=== PATIENT | female | born 1995 | race Caucasian/White ===

== ENCOUNTER 2020-07-05 10:00 | Emergency (ER) | payer OTHER ==
[2020-07-05 10:08] VITALS: BP 107/55; PULSE 76; TEMP 98.2; BMI 22.6
[2020-07-05] MEDS ORDERED: ACETAMINOPHEN 500 MG TABLET (FP) PO ONE (10:56)
[2020-07-05 11:13] LABS: BASO % 0.4 % (0-2.0); EOS % 0.7 % (0-4.5); HEMATOCRIT 37.8 % (32.4-45.2); HEMOGLOBIN 12.1 GM/dL (10.7-15.3); LYMPH % 34.7 % (8-40); MCH 27.8 pg (25.7-33.7); MCHC 32.1 g/dl (32.0-36.0); MEAN CELL VOLUME 86.5 fl (80-96); MEAN PLT VOLUME 8.2 fl (7.5-11.1); MONO % 7.2 % (3.8-10.2); PLATELET COUNT 241 K/MM3 (134-434); RBC 4.37 M/mm3 (3.60-5.2); RDW 13.6 % (11.6-15.6)
[2020-07-05] MEDS ORDERED: ACETAMINOPHEN 325 MG TABLET (FP) ONE (11:32)
[2020-07-05 11:47] LABS: BILIRUBIN,TOTAL 0.3 mg/dL (0.2-1); BLOOD UREA NITROGEN 11.1 mg/dL (7-18); CALCIUM 8.8 mg/dL (8.5-10.1); CREATININE 0.8 mg/dL (0.55-1.3); POTASSIUM 3.5 mmol/L (3.5-5.1); TOT PROT 7.4 g/dl (6.4-8.2)
--- NOTE | 2020-07-05 11:58 | PDOC ---
History of Present Illness - General Chief Complaint: Vaginal Bleeding Stated Complaint: VAGINAL BLEEDING Time Seen by Provider: 07/05/20 10:46 History Source: Patient Exam Limitations: No Limitations - History of Present Illness Initial Comments: 07/05/20 11:55 24-year-old female denies past medical history, status post gastric sleeve 7 years ago, LMP 05/19/20, reports positive home test 06/28/20. Presents to ED complaining of vaginal spotting since yesterday and heavier vaginal bleeding since this morning with lower pelvic cramping. Denies passing clots, she is not soaking pads, denies dizziness, shortness of breath, chest pain, nausea, vomiting, diarrhea, back pain or urinary symptoms. Patient has not taken any medication for pain today. She started taking vitamins yesterday. Has OB appointment scheduled for July 17, 2020. ROS: as above PE: GENERAL: well-appearing, NAD HEAD: NCAT EYES: Pupils equal, round and reactive to light, sclera anicteric, conjunctiva clear ENT: pharynx: no erythema, no exudate, uvula midline NECK: supple CHEST: nontender RESP: clear, no w/r/r CARDIO: rrr, no m/g/r ABD: +BS, soft, nontender, non distended Pelvic: Os closed, no CMT, no adnexal tenderness to palpation, minimal blood in the vault BACK: no midline spinal ttp, no CVAT EXTREMITIES: Normal range of motion, no edema NEUROLOGICAL: Normal speech, normal gait SKIN: Warm, Dry Is this a multiple visit Asthma Patient?: No Past History - Medical History Allergies/Adverse Reactions: Allergies Allergy/AdvReac Type Severity Reaction Status Date / Time Penicillins Allergy Unknown Verified 07/05/20 10:05 Home Medications: Ambulatory Orders Ibuprofen [Motrin -] 400 mg PO Q6H #30 tablet 10/03/16 Anemia: No Asthma: No Cancer: No Cardiac Disorders: No CVA: No COPD: No CHF: No Dementia: No Diabetes: No GI Disorders: No Disorders: No HTN: No Hypercholesterolemia: No Liver Disease: No Seizures: No Thyroid Disease: No - Surgical History GI Surgery: Yes (gastric sleeve) - Reproductive History Is Patient Now?: Yes (#): 1 Para: 0 Polycystic Ovaries: Yes - Immunization History Immunization Up to Date: Yes - Psycho-Social/Smoking History Smoking History: Never smoked Have you smoked in the past 12 months: No Information on smoking cessation initiated: No - Substance Abuse Hx (Audit-C & DAST Scrn) How often the patient has a drink containing alcohol: Never Score: In Men: 4 or > Positive; In Women: 3 or > Positive: 0 Screen Result (Pos requires Nsg. Audit-10AR): Negative In the last yr the pt used illegal drug/Rx for NonMed reason: No Score: Yes response is considered Positive: 0 Screen Result (Positive result requires Nsg. DAST-10): Negative *Physical Exam - Vital Signs Last Vital Signs Temp Pulse Resp BP Pulse Ox 98.2 F 76 15 107/55 L 99 07/05/20 10:05 07/05/20 10:05 07/05/20 10:05 07/05/20 10:05 07/05/20 10:05 ED Treatment Course - LABORATORY CBC & Chemistry Diagram: 07/05/20 10:55 07/05/20 10:55 - ADDITIONAL ORDERS Additional order review: Laboratory Results 07/05/20 10:55 Sodium 139 Potassium 3.5 Chloride 106 Carbon Dioxide 25 Anion Gap 8 BUN 11.1 Creatinine 0.8 Est GFR (CKD-EPI)AfAm 118.76 Est GFR (CKD-EPI)NonAf 102.47 Random Glucose 88 Calcium 8.8 Total Bilirubin 0.3 AST 9 L ALT 13 Alkaline Phosphatase 44 L Total Protein 7.4 Albumin 4.0 07/05/20 10:55 RBC 4.37 MCV 86.5 MCHC 32.1 RDW 13.6 MPV 8.2 Neutrophils % 57.0 Lymphocytes % 34.7 D Monocytes % 7.2 Eosinophils % 0.7 Basophils % 0.4 - RADIOLOGY Radiology Studies Ordered: Category Date Time Status TRANSVAGINAL US PREG [US] Stat Ultrasound 07/05/20 10:52 Ordered Medical Decision Making - Medical Decision Making 07/05/20 11:58 24-year-old female denies past medical history, status post gastric sleeve 7 years ago, LMP 05/19/20, reports positive home test 06/28/20. Presents to ED complaining of vaginal spotting since yesterday and heavier vaginal bleeding since this morning with lower pelvic cramping. Denies passing clots, she is not soaking pads, denies dizziness, shortness of breath, chest pain, nausea, vomiting, diarrhea, back pain or urinary symptoms. Patient has not taken any medication for pain today. She started taking vitamins yesterday. Has OB appointment scheduled for July 17, 2020. Labs including type and screen and UA BHCG Transvaginal ultrasound Acetaminophen p.o. Reassess 07/05/20 14:10 bhcg 958.8, RH + Transvaginal ultrasound shows no intrauterine , right adnexal mass susp icious for ectopic Discussed these results with patient She has been advised to return to the emergency department in 2 days for a repeat bhcg and transvaginal ultrasound Return to ED sooner if you develop heavy vaginal bleeding, passing clots or any worsening symptom 07/05/20 14:12 Discharge - Discharge Information Problems reviewed: Yes Clinical Impression/Diagnosis: Vaginal bleeding Condition: Stable Disposition: HOME - Admission No - Follow up/Referral Referrals: Leroy Nguyen MD [Primary Care Provider] - - Patient Discharge Instructions Additional Instructions: Return to ED in 2 days for repeat blood If you develop heavy vaginal bleeding, worsening abdominal pain, dizziness, shortness of breath or any concerning symptoms return to the ED sooner - Post Discharge Activity
[2020-07-05 12:22] LABS: EPI CELLS 4 /uL (0-25.1); HYALINE CASTS 0 /uL (0-3.1); URINE APPEARANCE CLEAR; URINE BACTERIA 28 /uL (0-1359); URINE BILIRUBIN NEGATIVE (NEGATIVE); URINE COLOR YELLOW; URINE GLUCOSE (UA) NEGATIVE (NEGATIVE); URINE KETONE TRACE (NEGATIVE); URINE LEUK ESTERASE NEGATIVE (NEGATIVE); URINE NITRITE NEGATIVE (NEGATIVE); URINE PROTEIN NEGATIVE (NEGATIVE); URINE RBC 7 /uL (0-23.9); URINE UROBILINOGEN 0.2 mg/dL (0.2-1.0); URINE WBC 2 /uL (0-25.8)
== END 2020-07-05 14:00 | disposition home or self-care (01) ==
LOC: JER 10:00
DX: N93.9 Abnormal uterine and vaginal bleeding, unspecified (principal)
CPT/HCPCS: 36415; 76817-TC; 80053; 81003; 84702; 85025; 86850; 86900; 86901; 87086; 99284-25